=== PATIENT | male | born 1975 | race Caucasian/White ===

== ENCOUNTER 2017-12-16 11:27 | Emergency (ER) | payer OTHER ==
[~2017-12-16] VITALS: Ht 172.7 cm; Wt 89.7 kg
[~2017-12-16 11:27] MED LIST: CELEXA PO; HYDROCHLOROTHIAZIDE PO; MINIPRESS2 MG PO; MOTRIN IB200 MG PO; PRILOSEC OTC20 MG PO; TRAMADOL HCL50 MG PO; ZOCOR PO
[2017-12-16 12:04] LABS: HEMATOCRIT 44.2 % (38.0-50.0); HEMOGLOBIN 15.3 G/DL (12.5-16.6); MCH 31.7 PG (29.0-34.0); MCHC 34.6 G/DL (30.0-36.0); MCV 91.5 FL (86-99); PLATELET COUNT 232 K/uL (156-360); RBC DIS.WIDTH-CV 12.4 % (11.8-14.6); RBC DIS.WIDTH-SD 41.9 % (39-53); RED BLOOD COUNT 4.83 M/uL (4.00-5.50); WHITE BLOOD COUNT 6.8 K/uL (4.1-10.2)
[2017-12-16 12:15] LABS: ALBUMIN 4.2 g/dL (3.2-4.8); CHLORIDE 113 mEq/L (99-109); POTASSIUM 4.3 mEq/L (3.7-5.4); SODIUM 141 mEq/L (136-147)
[2017-12-16 12:17] LABS: GLUCOSE 93 mg/dL (70-99); TOTAL PROTEIN 6.9 g/dL (6.4-8.3)
[2017-12-16 12:19] LABS: TOTAL BILIRUBIN 0.3 mg/dL (0.0-1.0)
[2017-12-16 12:21] LABS: ALKALINE PHOSPHATASE 107 IU/L (3-129); GFR ESTIMATE (CALCULATED) > 59 mL/min/ (58.99-99999)
[2017-12-16 12:22] LABS: AST (GOT) 22 IU/L (2-34); UREA NITROGEN (BUN) 17 mg/dL (9-23)
[2017-12-16 12:24] LABS: ALT (GPT) 28 IU/L (3-49)
[2017-12-16 14:06] LABS: APPEARANCE CLEAR ((CLEAR)); BILIRUBIN NEGATIVE; BLOOD NEGATIVE; COLOR YELLOW ((YELLOW)); GLUCOSE (STRIP) NEGATIVE; KETONES NEGATIVE; LEUKOCYTES NEGATIVE; NITRITE NEGATIVE; PROTEIN (STRIP) NEGATIVE; SPECIFIC GRAVITY 1.028 (1.000-1.030); UCUL ADDED? NO; UROBILINOGEN 0.2 MG/DL (0.2-1.0)
[2017-12-16] MEDS ORDERED: LORTAB 5-325 M1 EACH PO (14:52)
[2017-12-16] MEDS ORDERED: FLOMAX0.4 MG PO (14:52)
[2017-12-16] MEDS ORDERED: ZOFRAN ODT4 MG PO (14:52)
[2017-12-16 15:10] VITALS: BP 118/75
== END 2017-12-16 15:14 | disposition home or self-care (01) ==
LOC: EME 11:27
PROVIDERS: Nurse Practitioner Family
DX: N20.0 Calculus of kidney (principal); R19.7 Diarrhea, unspecified; Z87.442 Personal history of urinary calculi; F17.210 Nicotine dependence, cigarettes, uncomplicated; Z71.6 Tobacco abuse counseling; F43.10 Post-traumatic stress disorder, unspecified
CPT/HCPCS: 74018; 76770; 80053; 81003; 85027; 99281; 99285; J1885; J7030